=== PATIENT | male | born 1970 | race Two or more races ===

== ENCOUNTER 2018-01-25 06:25 | Emergency (ER) | payer SELFPAY ==
[~2018-01-25] VITALS: Ht 170.2 cm; Wt 99.8 kg
[2018-01-25] MEDS ORDERED: IV NORMAL SALINE 1000ML BAG 1,000 ML IV SCH (07:00)
--- NOTE | 2018-01-25 07:25 | EKG ---
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
[2018-01-25 07:26] LABS: BASO % 0 % (0-3); EOS # 0.1 x10^3/uL (0.0-0.7); EOS % 1 % (0-3); HEMATOCRIT 46.3 % (39.0-53.0); HEMOGLOBIN 16.2 g/dL (13.0-17.5); LYMPH # 0.7 x10^3/uL (1.0-4.8); LYMPH % 12 % (24-48); MEAN CORPUSCULAR HEMOGLOBIN 31 pg (25-35); MEAN CORPUSCULAR HGB CONC 35 g/dL (31-37); MEAN CORPUSCULAR VOLUME 89 fL (79-100); MONO # 0.7 x10^3/uL (0.0-1.1); MONO % 11 % (0-9); NEUT # 4.4 x10^3uL (1.8-7.7); NEUT % 75 % (31-73); PLATELET COUNT 136 x10^3/uL (140-400); RED CELL DISTRIBUTION WIDTH 13.6 % (11.5-14.5); WHITE BLOOD COUNT 5.9 x10^3/uL (4.0-11.0)
--- NOTE | 2018-01-25 07:31 | PHYS DOC ---
Past Medical History Past Medical History: Diabetes-Type II Past Surgical History: No Surgical History Alcohol Use: Occasionally Drug Use: Marijuana Adult General Chief Complaint Chief Complaint: FLU SYMPTOM HPI HPI Patient is a 47 year old male who presents with complaint of flulike symptoms that started on Wednesday. Patient reports productive cough, subjective fever, chills and body aches that have not improved despite taking [id number] medication. He states that this morning he started having some epigastric/lower chest pain and became concerned and felt that he needed to come to the emergency room. He states that he felt some nausea but did not have any vomiting. Patient rates pain as being moderate. He denies any radiation of the pain. Patient states that he has been taking aspirin and [place] plus for symptoms. Patient also complains of rash on his scalp. Review of Systems Review of Systems Constitutional: Positive fever and chills [] HENT: Positive congestion and sore throat [] Respiratory: Positive productive cough without shortness of breath [] Cardiovascular: Positive lower chest/epigastric discomfort[] GI: Positive epigastric discomfort with nausea. Denies vomiting or diarrhea. [] Musculoskeletal: Complains of body aches[] Integument: Denies rash or skin lesions [] All other systems were reviewed and found to be within normal limits, except as documented in this note. Current Medications Current Medications Current Medications Medications (Trade) Dose Ordered Sig/Gibran Start Time Stop Time Status Last Admin Dose Admin Fentanyl Citrate (Fentanyl 2ml Vial) 50 mcg 1X ONCE 01/25/18 09:45 01/25/18 09:46 DC 01/25/18 09:56 50 MCG Info (CONTRAST GIVEN -- Rx MONITORING) 1 each PRN DAILY PRN 01/25/18 08:30 01/27/18 08:29 Iohexol (Omnipaque 300 Mg/ml) 75 ml 1X ONCE 01/25/18 08:30 01/25/18 08:31 DC 01/25/18 08:34 75 ML Ketorolac Tromethamine (Toradol 30mg Vial) 30 mg 1X ONCE 01/25/18 09:45 01/25/18 09:46 DC 01/25/18 09:55 30 MG Ondansetron HCl (Zofran) 4 mg 1X ONCE 01/25/18 09:45 01/25/18 09:46 DC 01/25/18 09:55 4 MG Sodium Chloride 1,000 ml @ 1,000 mls/hr 1X ONCE 01/25/18 09:45 01/25/18 10:44 DC 01/25/18 09:55 1,000 MLS/HR Allergies Allergies Allergies Coded Allergies Type Severity Reaction Last Updated Verified No Known Drug Allergies 01/25/18 No Physical Exam Physical Exam Constitutional: Well developed, well nourished, no acute distress, non-toxic appearance. [] HENT: Normocephalic, atraumatic, bilateral external ears normal, oropharynx moist, no oral exudates, nose normal. [] Eyes: PERRLA, EOMI, conjunctiva normal, no discharge. [] Neck: Normal range of motion, no tenderness, supple, no stridor. [] Cardiovascular: Regular rate and rhythm [] Lungs & Thorax: Bilateral breath sounds clear to auscultation [] Abdomen: Bowel sounds normal, soft, with epigastric tenderness. [] Skin: Warm, diaphoretic. [] Extremities: No tenderness, no cyanosis, no clubbing, ROM intact, no edema. [] Neurologic: Alert and oriented X 3, normal motor function, normal sensory function, no focal deficits noted. [] Current Patient Data Vital Signs Vital Signs Date Time Temp Pulse Resp B/P (MAP) Pulse Ox O2 Delivery O2 Flow Rate FiO2 01/25/18 09:56 18 95 Room Air 01/25/18 06:25 99.0 95 148/77 (100) 99.0 Lab Values Laboratory Tests Test 01/25/18 07:15 01/25/18 10:00 White Blood Count 5.9 x10^3/uL (4.0-11.0) Red Blood Count 5.20 x10^6/uL (4.30-5.70) Hemoglobin 16.2 g/dL (13.0-17.5) Hematocrit 46.3 % (39.0-53.0) Mean Corpuscular Volume 89 fL (79-100) Mean Corpuscular Hemoglobin 31 pg (25-35) Mean Corpuscular Hemoglobin Concent 35 g/dL (31-37) Red Cell Distribution Width 13.6 % (11.5-14.5) Platelet Count 136 x10^3/uL (140-400) L Neutrophils (%) (Auto) 75 % (31-73) H Lymphocytes (%) (Auto) 12 % (24-48) L Monocytes (%) (Auto) 11 % (0-9) H Eosinophils (%) (Auto) 1 % (0-3) Basophils (%) (Auto) 0 % (0-3) Neutrophils # (Auto) 4.4 x10^3uL (1.8-7.7) Lymphocytes # (Auto) 0.7 x10^3/uL (1.0-4.8) L Monocytes # (Auto) 0.7 x10^3/uL (0.0-1.1) Eosinophils # (Auto) 0.1 x10^3/uL (0.0-0.7) Basophils # (Auto) 0.0 x10^3/uL (0.0-0.2) Sodium Level 131 mmol/L (136-145) L Potassium Level 3.9 mmol/L (3.5-5.1) Chloride Level 96 mmol/L (98-107) L Carbon Dioxide Level 25 mmol/L (21-32) Anion Gap 10 (6-14) Blood Urea Nitrogen 9 mg/dL (8-26) Creatinine 0.8 mg/dL (0.7-1.3) Estimated GFR (Cockcroft-Gault) 103.6 BUN/Creatinine Ratio 11 (6-20) Glucose Level 300 mg/dL (70-99) H Calcium Level 9.4 mg/dL (8.5-10.1) Total Bilirubin 0.6 mg/dL (0.2-1.0) Aspartate Amino Transferase (AST) 62 U/L (15-37) H Alanine Aminotransferase (ALT) 211 U/L (16-63) H Alkaline Phosphatase 114 U/L (46-116) Troponin I Quantitative < 0.017 ng/mL (0.000-0.055) Total Protein 7.5 g/dL (6.4-8.2) Albumin 3.5 g/dL (3.4-5.0) Albumin/Globulin Ratio 0.9 (1.0-1.7) L Lipase 282 U/L (73-393) Influenza Type A Antigen Negative (NEGATIVE) Influenza Type B Antigen Negative (NEGATIVE) Urine Collection Type Unknown Urine Color Yellow Urine Clarity Clear Urine pH 6.0 Urine Specific [place] >=1.030 Urine Protein Negative mg/dL (NEG-TRACE) Urine Glucose (UA) >=1000 mg/dL (NEG) Urine Ketones (Stick) 40 mg/dL (NEG) Urine Blood Negative (NEG) Urine Nitrite Negative (NEG) Urine Bilirubin Negative (NEG) Urine Urobilinogen Dipstick 1.0 mg/dL (0.2 mg/dL) Urine Leukocyte Esterase Negative (NEG) Urine RBC 1-2 /HPF (0-2) Urine WBC 1-4 /HPF (0-4) Urine Squamous Epithelial Cells Occ /LPF Urine Bacteria 0 /HPF (0-FEW) Group A Streptococcus Rapid Negative (NEGATIVE) Laboratory Tests 01/25/18 07:15 Laboratory Tests 01/25/18 07:15 EKG EKG [] Interpretation Time: EKG demonstrates normal sinus rhythm with rate of 65. Radiology/Procedures Radiology/Procedures [] Impressions: Examination: CHEST PA LATERAL History: COUGH AND FLU LIKE SYMPTOMS Comparison/Correlation: None Findings: PA and lateral views of chest were obtained. Heart size and pulmonary vasculature are normal. No infiltrate or pleural effusion. No pneumothorax. Bony structures are grossly unremarkable for the patient's age. Impression: No active disease. PROCEDURE: CT ABD PELV W/ IV CONTRST ONLY CT of the abdomen and pelvis with contrast 01/25/2018 INDICATION: Fever and abdominal pain COMPARISON STUDY: None Discussion: Ultrasound sector CT imaging of the abdomen and pelvis was obtained following the administration of IV contrast. FINDINGS: Visualized lung bases demonstrate no acute abnormality. There is a 5 mm stone in the proximal left ureter with mild left-sided hydronephrosis. No significant perinephric stranding is identified. Left renal parenchymal enhancement is unremarkable. Mild periureteric stranding is seen. There is a small cyst in the anterior mid right kidney measuring 1.8 cm in diameter. Smaller exophytic cyst is seen more inferiorly measuring approximately 6 mm. Spleen demonstrates multiple calcifications indicative of prior granulomatous disease. Liver and gallbladder are grossly unremarkable. Pancreas is unremarkable. There is no evidence of bowel obstruction. No evidence of acute inflammatory change involving the bowel is identified appendix is unremarkable. No significant free fluid or free air is seen in the abdomen or pelvis. Fatty inguinal hernias present on the right. Bilateral spondylolysis at L5 with grade 2 anterolisthesis of L5 on S1. IMPRESSION: 1.5 mm stone in the proximal left ureter with mild left-sided hydronephrosis and mild periureteric stranding 2. Other chronic changes, noted above Course & Med Decision Making Course & Med Decision Making Pertinent Labs and Imaging studies reviewed. (See chart for details) [] Brody Disclaimer Brody Disclaimer This electronic medical record was generated, in whole or in part, using a voice recognition dictation system. Departure Departure Impression: Primary Impression: Ureterolithiasis Additional Impression: Tinea capitis Disposition: HOME, SELF-CARE Condition: STABLE Referrals: NO PCP (PCP) Patient Instructions: Kidney Stones Scripts Ketoconazole (NIZORAL) 120 Ml Shampoo 1 TO TP TWICE WEEKLY, #120 ML Prov: AARON SHORT Jr. DO 01/25/18 Promethazine Hcl (PROMETHAZINE HCL) 25 Mg Tablet 1 TAB PO PRN Q6HRS PRN for NAUSEA, #12 TAB Prov: AARON SHORT Jr. DO 01/25/18 Oxycodone/Apap 5-325 (PERCOCET 5-325 MG TABLET) 1 Each Tablet 1 EACH PO Q6HRS PRN for PAIN, #15 TAB pain Prov: AARON SHORT Jr. DO 01/25/18 Sulfamethoxazole/Trimethoprim (BACTRIM DS TABLET) 1 Each Tablet 1 TAB PO BID, #20 TAB Prov: AARON SHORT Jr. DO 01/25/18 Problem Qualifiers AARON SHORT Jr. DO Jan 25, 2018 07:31
[2018-01-25 07:34] LABS: CALCIUM 9.4 mg/dL (8.5-10.1); CREATININE 0.8 mg/dL (0.7-1.3); GFR 103.6; POTASSIUM 3.9 mmol/L (3.5-5.1)
[2018-01-25 07:39] LABS: ALBUMIN 3.5 g/dL (3.4-5.0); ALBUMIN/GLOBULIN RATIO 0.9 (1.0-1.7); TOTAL BILIRUBIN 0.6 mg/dL (0.2-1.0); TOTAL PROTEIN 7.5 g/dL (6.4-8.2)
[2018-01-25 07:43] LABS: INFLUENZA A PATIENT NEGATIVE (NEGATIVE); INFLUENZA B PATIENT NEGATIVE (NEGATIVE)
--- NOTE | 2018-01-25 07:50 | RAD ---
Examination: CHEST PA LATERAL History: COUGH AND FLU LIKE SYMPTOMS Comparison/Correlation: None Findings: PA and lateral views of chest were obtained. Heart size and pulmonary vasculature are normal. No infiltrate or pleural effusion. No pneumothorax. Bony structures are grossly unremarkable for the patient's age. Impression: No active disease. Electronically signed by: Maximo Hobbs MD (01/25/2018 7:46 AM) [facility]
[2018-01-25] MEDS ORDERED: IOHEXOL 300 MG/ML 100ML VIAL. IV ONE (08:30)
[2018-01-25] MEDS ORDERED: CONTRAST GIVEN. MC PRN (08:30)
--- NOTE | 2018-01-25 09:04 | RAD ---
CT of the abdomen and pelvis with contrast 01/25/2018 INDICATION: Fever and abdominal pain COMPARISON STUDY: None Discussion: Ultrasound sector CT imaging of the abdomen and pelvis was obtained following the administration of IV contrast. FINDINGS: Visualized lung bases demonstrate no acute abnormality. There is a 5 mm stone in the proximal left ureter with mild left-sided hydronephrosis. No significant perinephric stranding is identified. Left renal parenchymal enhancement is unremarkable. Mild periureteric stranding is seen. There is a small cyst in the anterior mid right kidney measuring 1.8 cm in diameter. Smaller exophytic cyst is seen more inferiorly measuring approximately 6 mm. Spleen demonstrates multiple calcifications indicative of prior granulomatous disease. Liver and gallbladder are grossly unremarkable. Pancreas is unremarkable. There is no evidence of bowel obstruction. No evidence of acute inflammatory change involving the bowel is identified appendix is unremarkable. No significant free fluid or free air is seen in the abdomen or pelvis. Fatty inguinal hernias present on the right. Bilateral spondylolysis at L5 with grade 2 anterolisthesis of L5 on S1. IMPRESSION: 1.5 mm stone in the proximal left ureter with mild left-sided hydronephrosis and mild periureteric stranding 2. Other chronic changes, noted above CT DOSING PQRS STATEMENT: One or more of the following individualized dose reduction techniques were utilized for this examination: 1. Automated exposure control 2. Adjustment of the mA and/or kV according to patient size 3. Use of iterative reconstruction technique Electronically signed by: Adrien Silverio MD (01/25/2018 9:00 AM) [id number]
[2018-01-25] MEDS ORDERED: fentaNYL PF VIAL 100 MCG/2 ML VIAL IV ONE (09:45)
[2018-01-25] MEDS ORDERED: ONDANSETRON PF 4 MG/2 ML VIAL. IV ONE (09:45)
[2018-01-25] MEDS ORDERED: IV NORMAL SALINE 1000ML BAG 1,000 ML IV ONE (09:45)
[2018-01-25] MEDS ORDERED: KETOROLAC 30 MG/ML VIAL. IV ONE (09:45)
[2018-01-25 10:24] LABS: BILIRUBIN,URINE NEGATIVE (NEG); CLARITY,URINE CLEAR; COLOR,URINE YELLOW; NITRITE,URINE NEGATIVE (NEG); PROTEIN,URINE NEGATIVE (NEG-TRACE)
[2018-01-25 10:45] LABS: SQUAMOUS EPITHELIAL CELL,UR OCC /LPF
[2018-01-25 10:46] LABS: BACTERIA,URINE 0 /HPF (0-FEW)
[2018-01-25 11:25] VITALS: BP 126/79
[2018-01-25] MEDS ORDERED: OXYC-323 PO (11:36)
[2018-01-25] MEDS ORDERED: SULF1TAB24 PO (11:36)
[2018-01-25] MEDS ORDERED: KETO120S5 TP (11:36)
[2018-01-25] MEDS ORDERED: PROM25TA10 PO (11:36)
== END 2018-01-25 11:50 | disposition home or self-care (01) ==
LOC: ER 06:25
DX: N13.2 Hydronephrosis with renal and ureteral calculous obstruction (principal); B35.0 Tinea barbae and tinea capitis; R50.9 Fever, unspecified; R05 Cough; J02.9 Acute pharyngitis, unspecified; R07.89 Other chest pain; M47.897 Other spondylosis, lumbosacral region; R10.13 Epigastric pain; E11.9 Type 2 diabetes mellitus without complications; R11.0 Nausea
CPT/HCPCS: 36415; 71046; 74177; 80053; 81001; 83690; 84484; 85025; 87040; 87070; 87804; 87880; 93005; 96374; 96375; 99284; J1885; J2405; J3010; J7030; Q9967

== ENCOUNTER 2020-03-16 15:40 | Emergency (ER) | payer BC, OTHER ==
[~2020-03-16] VITALS: Ht 167.6 cm; Wt 90.9 kg
[~2020-03-16 15:40] MED LIST: HYDR-3164 PO; KETO120S5 TP; METF10007 PO; OXYC1TAB15 PO; PROM25TA10 PO; SULF1TAB24 PO; TAMS0.4C97 PO
[2020-03-16] MEDS ORDERED: MORPHINE SULFATE 4 MG/ML VIAL. IV/SQ PRN (16:00)
[2020-03-16] MEDS ORDERED: DEXAMETHASONE SOD PHOS 20 MG/5 ML VIAL. IV ONE (16:00)
[2020-03-16] MEDS ORDERED: IV NORMAL SALINE 1000ML BAG 1,000 ML IV ONE (16:15)
--- NOTE | 2020-03-16 16:19 | PHYS DOC ---
Past Medical History Past Medical History: Diabetes-Type II Additional Past Medical Histor: NON-COMPLIANT (MIKAYLA ENGLISH APRN) Past Surgical History: No Surgical History (MIKAYLA ENGLISH APRN) Smoking Status: Current Every Day Smoker Alcohol Use: Occasionally Drug Use: Marijuana (MIKAYLA ENGLISH APRN) General Adult EDM: Chief Complaint: COUGH HPI: HPI: Patient is a 49 year old male with a history of diabetes type 2, current smoker, who presents to the ED today stating he was diagnosed with COVID-19 3 days ago. He states his had cough, body aches, chills, fevers, nausea, vomiting, diarrhea, SOA for 1 week. He states he was seen at [facility] yesterday and they did not do anything for him. (MIKAYLA ENGLISH APRN) Review of Systems: Review of Systems: Constitutional: Reports fevers, body aches and chills Eyes: Denies change in visual acuity. [] HENT: Denies nasal congestion or sore throat. [] Respiratory: Reports cough shortness of breath. [] Cardiovascular: Denies chest pain or edema. [] GI: Reports nausea, vomiting, diarrhea. Denies abdominal pain, hematemesis or melena : Denies dysuria. [] Musculoskeletal: Denies back pain or joint pain. [] Integument: Denies rash. [] Neurologic: Denies headache, focal weakness or sensory changes. [] Psychiatric: Denies depression or anxiety. [] (MIKAYLA ENGLISH APRN) Heart Score: Risk Factors: Risk Factors: DM, Current or recent (<one month) smoker, HTN, HLP, family history of CAD, obesity. Risk Scores: Score 0 - 3: 2.5% MACE over next 6 weeks - Discharge Home Score 4 - 6: 20.3% MACE over next 6 weeks - Admit for Clinical Observation Score 7 - 10: 72.7% MACE over next 6 weeks - Early Invasive Strategies (MIKAYLA ENGLISH APRN) Current Medications: Current Medications Medications (Trade) Dose Ordered Sig/Gibran Start Time Stop Time Status Last Admin Dose Admin Dexamethasone Sodium Phosphate (Decadron) 10 mg 1X ONCE 03/16/20 16:00 03/16/20 16:06 DC Morphine Sulfate (Morphine Sulfate) 4 mg PRN Q15MIN PRN 03/16/20 16:00 03/17/20 15:59 Sodium Chloride 1,000 ml @ 1,000 mls/hr 1X ONCE 03/16/20 16:15 03/16/20 17:14 (MIKAYLA ENGLISH APRN) Allergies: Allergies: Allergies Coded Allergies Type Severity Reaction Last Updated Verified No Known Drug Allergies 01/25/18 No (MIKAYLA ENGLISH APRN) Physical Exam: PE: Constitutional: Well developed, well nourished, no acute distress, non-toxic appearance. [] HENT: Normocephalic, atraumatic, bilateral external ears normal, oropharynx moist, no oral exudates, nose normal. [] Eyes: PERRLA, EOMI, conjunctiva normal, no discharge. [] Neck: Normal range of motion, no tenderness, supple, no stridor. [] Cardiovascular:Heart rate regular rhythm, no murmur [] Lungs & Thorax: Bilateral breath sounds clear to auscultation [] Abdomen: Bowel sounds normal, soft, no tenderness, no masses, no pulsatile masses. [] Skin: Warm, dry, no erythema, no rash. [] Back: No tenderness, no CVA tenderness. [] Extremities: No tenderness, no cyanosis, no clubbing, ROM intact, no edema. [] Neurologic: Alert and oriented X 3, normal motor function, normal sensory function, no focal deficits noted. [] Psychologic: Affect normal, judgement normal, mood normal. [] (MIKAYLA ENGLISH APRN) Current Patient Data: Vital Signs: Vital Signs Date Time Temp Pulse Resp B/P (MAP) Pulse Ox O2 Delivery O2 Flow Rate FiO2 03/16/20 15:57 99.6 76 20 118/86 (97) 94 Room Air 99.6 (MIKAYLA ENGLISH APRN) EKG: EK interpreted by Dr. Merino sinus rhythm HR 66 no STEMI (MIKAYLA ENGLISH APRN) Radiology/Procedures: Radiology/Procedures: []PATIENT: ESTRELLITA RIZOACCOUNT: [id number]#: [id number] : 1970 LOCATION: ER AGE: 49 SEX: M EXAM STATUS: REG ER ORD. PHYSICIAN: MIKAYLA ENGLISH APRN REASON: cough + covid PROCEDURE: PORTABLE CHEST 1V EXAM: CHEST 1 VIEW History: Cough, covid COMPARISON: 01/25/2018. TECHNIQUE: Single portable radiograph of the chest FINDINGS: Mild cardiomegaly. Bilateral lung airspace opacities with the prominent appearing airspace opacity identified in the right midlung zone likely infiltrates or atypical pneumonia or covid pneumonia. IMPRESSION: Bilateral lung airspace opacities with prominent appearing airspace opacity identified in the right midlung zone likely infiltrates or atypical or covid pneumonia. Follow-up to resolution. Electronically signed by: Vern Wharton MD (03/16/2020 4:30 PM) [id number] DICTATED and SIGNED BY: VERN WHARTON MD DATE: 03/16/20 [id number] (MIKAYLA ENGLISH APRN) Course & Med Decision Making: Course & Med Decision Making Pertinent Labs and Imaging studies reviewed. (See chart for details) This is a 49-year-old male patient who presents to the ED today with Covid symptoms, patient was diagnosed with Covid 3 days ago. He is complaining of body aches, chills, cough, shortness of breath, diarrhea, vomiting, symptoms for roughly a week. Arrives in the ED with O2 sats around 94% on room air, heart rate 74, temperature 99.6, respiration 20 on room air, blood pressure 118/86 Chest x-ray noted for bilateral Covid pneumonia. CBC with a normal WBCs, platelet count 118, CMP with glucose of 309, AST60, ALK 79. Given Decadron, Rocephin and azithromycin. Discharged with Decadron, azithromycin and instructed to follow-up with the PCP. Rest, push fluids, maintain good and hygiene and wear a mask (MIKAYLA ENGLISH APRN) Dragon Disclaimer: Dragon Disclaimer: This electronic medical record was generated, in whole or in part, using a voice recognition dictation system. (MIKAYLA ENGLISH APRN) Departure Departure Impression: Primary Impression: Lab test positive for detection of COVID-19 virus Additional Impressions: Bilateral pulmonary infiltrates on CXR Hyperglycemia Disposition: 01 DC HOME SELF CARE/HOMELESS Condition: STABLE Referrals: NO PCP (PCP) follow up with your doctor next week Patient Instructions: Hyperglycemia, Pneumonia, Adult Additional Instructions: You are Covid positive, your chest x-ray shows he have Covid pneumonia. Please take the prescribed medications as ordered. Rest, push fluids. Follow-up with your doctor in the course of next week Scripts Azithromycin (ZITHROMAX) 250 Mg Tablet 1 PKG PO UD, #1 PKG Prov: MIKAYLA ENGLISH APRN 03/16/20 Benzonatate (TESSALON PERLE) 100 Mg Capsule 1 CAP PO TID, #30 CAP Prov: MIKAYLA ENGLISH APRN 03/16/20 Dexamethasone (Decadron) 6 Mg Tablet 1 TAB PO DAILY, #7 TAB 0 Refills Prov: MIKAYLA ENGLISH APRN 03/16/20 Attending Signature Attending Signature I have reviewed the PA/WEIGHT INSPECTOR's note and plan of care. I was available for consultation as needed during the patient's visit in the emergency department. I agree with the clinical impression, plan, and disposition. (ARABELLA MERINO DO) MIKAYLA ENGLISH APRN Mar 16, 2020 16:19 ARABELLA MERINO DO Mar 17, 2020 06:17
[2020-03-16] MEDS ORDERED: ACETAMINOPHEN 500 MG TABLET PO ONE (16:30)
[2020-03-16] MEDS ORDERED: ONDANSETRON PF 4 MG/2 ML VIAL. IVP ONE (16:30)
--- NOTE | 2020-03-16 16:33 | RAD ---
EXAM: CHEST 1 VIEW History: Cough, covid COMPARISON: 01/25/2018. TECHNIQUE: Single portable radiograph of the chest FINDINGS: Mild cardiomegaly. Bilateral lung airspace opacities with the prominent appearing airspace opacity identified in the right midlung zone likely infiltrates or atypical pneumonia or covid pneum onia. IMPRESSION: Bilateral lung airspace opacities with prominent appearing airspace opacity identified in the right m idlung zone likely infiltrates or atypical or covid pneumonia. Follow-up to resolution. Electronically signed by: Vern Wharton MD (03/16/2020 4:30 PM) [id number]
[2020-03-16] MEDS ORDERED: AZITHROMYCIN 500 MG in IV NORMAL SALINE 250ML 250 ML IV ONE (17:00)
[2020-03-16] MEDS ORDERED: cefTRIAXone IV Push 1 GM VIAL. IVP ONE (17:00)
[2020-03-16] MEDS ORDERED: AZITHRMYCN 500MG IVPB FOR OMNI 250 ML IV ONE (17:00)
[2020-03-16 17:25] LABS: BASO % 0 % (0-3); EOS % 0 % (0-3); HEMATOCRIT 39.2 % (39.0-53.0); HEMOGLOBIN 13.5 g/dL (13.0-17.5); LYMPH # 0.6 x10^3/uL (1.0-4.8); LYMPH % 15 % (24-48); MEAN CORPUSCULAR HEMOGLOBIN 30 pg (25-35); MEAN CORPUSCULAR HGB CONC 34 g/dL (31-37); MEAN CORPUSCULAR VOLUME 87 fL (79-100); MONO # 0.1 x10^3/uL (0.0-1.1); MONO % 3 % (0-9); NEUT # 3.3 x10^3/uL (1.8-7.7); NEUT % 82 % (31-73); PLATELET COUNT 118 x10^3/uL (140-400); RED BLOOD COUNT 4.51 x10^6/uL (4.30-5.70); RED CELL DISTRIBUTION WIDTH 13.1 % (11.5-14.5); WHITE BLOOD COUNT 4.1 x10^3/uL (4.0-11.0)
[2020-03-16 17:33] LABS: CALCIUM 8.7 mg/dL (8.5-10.1); CREATININE 0.7 mg/dL (0.7-1.3); GFR 119.9; POTASSIUM 4.3 mmol/L (3.5-5.1)
[2020-03-16 17:39] LABS: ALBUMIN 2.7 g/dL (3.4-5.0); ALBUMIN/GLOBULIN RATIO 0.7 (1.0-1.7); TOTAL BILIRUBIN 0.4 mg/dL (0.2-1.0); TOTAL PROTEIN 6.4 g/dL (6.4-8.2)
[2020-03-16 17:50] VITALS: BP 122/80
[2020-03-16] MEDS ORDERED: BENZ100C PO (17:50)
[2020-03-16] MEDS ORDERED: DEXA6TAB6 PO (17:50)
[2020-03-16] MEDS ORDERED: AZIT250T PO (17:50)
[2020-03-16 18:10] LABS: CREATINE KINASE 127 U/L (39-308)
--- NOTE | 2020-03-17 11:51 | EKG ---
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
== END 2020-03-16 19:24 | disposition home or self-care (01) ==
LOC: ER 15:40
DX: R91.8 Other nonspecific abnormal finding of lung field (principal); E11.65 Type 2 diabetes mellitus with hyperglycemia; R11.2 Nausea with vomiting, unspecified; F17.200 Nicotine dependence, unspecified, uncomplicated
CPT/HCPCS: 36415; 71045; 80053; 82553; 83605; 83690; 83880; 84145; 84484; 85025; 87040; 93005; 96365; 96366; 96375; 99285; J0456; J0696; J1100; J2270; J2405; J7030

== ENCOUNTER 2021-07-17 20:30 | Emergency (ER) | payer BC, OTHER ==
[~2021-07-17] VITALS: Ht 167.6 cm; Wt 90.0 kg
[~2021-07-17 20:30] MED LIST changes: +AZIT250T PO; +BENZ100C PO; +DEXA6TAB6 PO
[2021-07-17 20:35] VITALS: BP 117/84
[2021-07-17] MEDS ORDERED: LIDOCAINE 2%/EPI 1:100,000 20 ML VIAL. INJ ONE (21:00)
--- NOTE | 2021-07-17 21:14 | ED.ADGEN ---
Past Medical History Past Medical History: Diabetes-Type II Additional Past Medical Histor: NON-COMPLIANT Past Surgical History: Other Additional Past Surgical Histo: hernia Smoking Status: Current Every Day Smoker Alcohol Use: Occasionally Drug Use: Marijuana General Adult EDM: Chief Complaint: LACERATION/AVULSION HPI: HPI: Patient is a 51 year old male coming in for left forearm laceration. 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 Last tetanus within 5 years. Review of Systems: Review of Systems: All other systems within normal limits except for as noted in the HPI Current Medications: Current Medications Medications (Trade) Dose Ordered Sig/Gibran Start Time Stop Time Status Last Admin Dose Admin Lidocaine/ Epinephrine (LIDOCAINE 2%-EPI 1:100,000 multi-dose) 20 ml 1X ONCE 07/17/21 21:00 07/17/21 21:01 DC 07/17/21 21:00 20 ML Allergies: Allergies: Allergies Coded Allergies Type Severity Reaction Last Updated Verified No Known Drug Allergies 01/25/18 No Physical Exam: PE: Constitutional: Well developed, well nourished, no acute distress, non-toxic appearance. [] HENT: Normocephalic, atraumatic, bilateral external ears normal, nose normal. [] Eyes: PERRLA, conjunctiva normal, no discharge. [] Neck: No rigidity, supple, no stridor. [] Cardiovascular: Regular rate and rhythm, brisk cap refill [] Lungs & Thorax: Non labored symmetric respirations, no tachypnea or respiratory distress [] Abdomen: Soft, nondistended. Skin: Warm, dry, no erythema, no rash. 1.5 cm linear laceration to distal left 4 [] Back: Unremarkable Extremities: No deformities, range of motion grossly intact, no lower extremity edema [] Neurologic: Alert and oriented X 3, no focal deficits noted. [] Psychologic: Affect normal, judgement normal, mood normal. [] Current Patient Data: Vital Signs: Vital Signs Date Time Temp Pulse Resp B/P (MAP) Pulse Ox O2 Delivery O2 Flow Rate FiO2 07/17/21 20:35 97.9 79 16 117/84 (95) 97 Room Air 97.9 EKG: EKG: [] Heart Score: C/O Chest Pain: No Risk Factors: Risk Factors: DM, Current or recent (<one month) smoker, HTN, HLP, family history of CAD, obesity. Risk Scores: Score 0 - 3: 2.5% MACE over next 6 weeks - Discharge Home Score 4 - 6: 20.3% MACE over next 6 weeks - Admit for Clinical Observation Score 7 - 10: 72.7% MACE over next 6 weeks - Early Invasive Strategies Radiology/Procedures: Radiology/Procedures: Patient was prepped and draped in normal fashion, wound irrigated and cleansed with normal saline. The one-point cm wound was anesthetized with lidocaine 2% with epinephrine. Depth of wound was examined and no foreign bodies found. Wound was approximated with 4suture in a simple pattern. 3 sutures placed without complication. Wound was then dressed a nonadherent bandage [] Course & Med Decision Making: Course & Med Decision Making Pertinent Labs and Imaging studies reviewed. (See chart for details) [] Dragon Disclaimer: Dragon Disclaimer: This electronic medical record was generated, in whole or in part, using a voice recognition dictation system. Departure Departure Impression: Primary Impression: Laceration of left forearm Disposition: HOME / SELF CARE / HOMELESS Condition: STABLE Referrals: NO PCP (PCP) Patient Instructions: Sutured Wound Care Additional Instructions: Follow-up with your primary care provider for suture removal in 1 week AYLEEN DORADO MD July 17, 2021 21:14
== END 2021-07-17 21:19 | disposition home or self-care (01) ==
LOC: ER 20:30
DX: S51.812A Laceration without foreign body of left forearm, initial encounter (principal); E11.9 Type 2 diabetes mellitus without complications; F17.200 Nicotine dependence, unspecified, uncomplicated; Y28.8XXA Contact with other sharp object, undetermined intent, initial encounter; Y93.89 Activity, other specified; Y92.89 Other specified places as the place of occurrence of the external cause; Y99.8 Other external cause status
CPT/HCPCS: 12001; 99282; J3490

== ENCOUNTER 2021-08-04 11:46 | Emergency (ER) | payer OTHER ==
[~2021-08-04] VITALS: Ht 165.1 cm; Wt 88.0 kg
[2021-08-04 11:50] VITALS: BP 118/71
--- NOTE | 2021-08-04 12:51 | PHYS DOC ---
Past Medical History Past Medical History: Diabetes-Type II Additional Past Medical Histor: NON-COMPLIANT Past Surgical History: Other Additional Past Surgical Histo: hernia Smoking Status: Current Every Day Smoker Alcohol Use: Occasionally Drug Use: Marijuana General Adult EDM: Chief Complaint: SUTURE/STAPLE REMOVAL HPI: HPI: Patient is a 51-year-old male presents to the emergency department requesting suture removal of sutures at the left distal forearm near the ulnar aspect wrist. Patient reports he had sutures placed 3 weeks ago, was told to have sutures out in 7 to 10 days, states he has been too busy to get to the emergency department until now. Patient denies any problems with his sutures. He did noticed the area was starting to turn red. Denies any purulent drainage from suture site. Denies fever or chills at home. Denies other physical complaints or physical concerns. Patient reports his last tetanus immunization was less than 5 years ago. Review of Systems: Review of Systems: 14 body systems of review of systems have been reviewed. See HPI for pertinent positives and negative responses, otherwise all other systems are negative, nonpertinent or noncontributory. Constitutional: Negative except as outlined in HPI above. Skin: Negative except as outlined in HPI above. Eyes: Negative except as outlined in HPI above. HENT: Negative except as outlined in HPI above. Respiratory: Negative except as outlined in HPI above. Cardiovascular: Negative except as outlined in HPI above. GI: Negative except as outlined in HPI above. : Negative except as outlined in HPI above. Musculoskeletal: Negative except as outlined in HPI above. Integument: Negative except as outlined in HPI above. Neurologic: Negative except as outlined in HPI above. Endocrine: Negative except as outlined in HPI above. Lymphatic: Negative except as outlined in HPI above. Psychiatric: Negative except as outlined in HPI above. Heart Score: C/O Chest Pain: No Risk Factors: Risk Factors: DM, Current or recent (<one month) smoker, HTN, HLP, family history of CAD, obesity. Risk Scores: Score 0 - 3: 2.5% MACE over next 6 weeks - Discharge Home Score 4 - 6: 20.3% MACE over next 6 weeks - Admit for Clinical Observation Score 7 - 10: 72.7% MACE over next 6 weeks - Early Invasive Strategies Allergies: Allergies: Allergies Coded Allergies Type Severity Reaction Last Updated Verified No Known Drug Allergies 01/25/18 No Physical Exam: PE: Constitutional: Well developed, well nourished, no acute distress, non-toxic appearance. 51-year-old male in no apparent distress. HENT: Normocephalic, atraumatic. Eyes: Conjunctiva normal, no discharge. Neck: Normal range of motion, no stridor. Cardiovascular: No cyanosis appreciated, distal cap refill less than 2 seconds. Lungs & Thorax: Patient is in no respiratory distress, no audible adventitious lung sounds appreciated. Abdomen: Nontender, no abnormalities noted. Skin: Warm, dry, no erythema, no rash. There are 3 sutures at the left distal forearm just proximal to the ulnar styloid bony prominence, there is an area of erythema with a fluctuant induration. There is no purulent drainage appreciated. Back: No tenderness, no deformities. Extremities: No tenderness, no cyanosis, no clubbing, ROM intact, no edema. Distal cap refill less than 2 seconds bilateral upper extremities, 2+ radial pulses bilateral upper extremities. Neurologic: Alert and oriented X 3, normal motor function, normal sensory function, no focal deficits noted. Psychologic: Affect normal, judgement normal, mood normal. Current Patient Data: Vital Signs: Vital Signs Date Time Temp Pulse Resp B/P (MAP) Pulse Ox O2 Delivery O2 Flow Rate FiO2 08/04/21 11:50 97.5 79 16 118/71 (87) 97 Room Air 97.5 EKG: EKG: [] Radiology/Procedures: Radiology/Procedures: [] Course & Med Decision Making: Course & Med Decision Making Pertinent Labs and Imaging studies reviewed. (See chart for details) 51-year-old male, vital signs reviewed, presents emergency department for suture removal. Patient had sutures placed approximately 3 weeks ago, states he was unable to have them removed until now related to he has been busy. 3 interrupted sutures were removed. There was a scant amount of purulent drainage expressed after suture removal. Along with area of erythema, discussed with patient will start on antibiotic therapy. Discussed with patient follow-up with primary care or work-up doctor for ongoing symptoms, discussed antibiotic and side effects, return to ER precautions and concerns were reviewed, patient gave verbal understanding of and is amenable to ED discharge planning. Discussed with the patient all findings and diagnostic testing as well as the need to follow-up with their primary care provider for further evaluation and treatment or return to the ED if any new or worsening symptoms. Strict return precautions were also discussed at length, the patient voiced understanding and agreement with the discharge planning. The patient was nontoxic in appearance, in no apparent distress, and hemodynamically stable at the time of disposition. Dragon Disclaimer: Dragon Disclaimer: This electronic medical record was generated, in whole or in part, using a voice recognition dictation system. Departure Departure Impression: Primary Impression: Encounter for removal of sutures Additional Impression: Abscess of left forearm Disposition: HOME / SELF CARE / HOMELESS Condition: GOOD Referrals: NO PCP (PCP) Patient Instructions: Abscess Additional Instructions: You were seen today in the emergency department for suture removal. You had reported the sutures were placed 3 weeks ago. All 3 sutures were removed, however you do show signs of a infection of the skin over the suture site. Please continue to cleanse daily with soap and water and apply antibiotic ointment and bandage, I am starting you on a antibiotic that you will take 4 times a day for the next 7 days. Please follow-up with your work comp physician or primary care physician for reevaluation of this suture site infection. Return to the emergency department for worsening symptoms or other concerns. Thank you for visiting our Emergency Department. It was a pleasure taking care of you today in the emergency department and we appreciate you trusting us with your care. If any additional problems come up don't hesitate to return to visit us. Please follow up with your primary care provider so they can plan additional care if needed and know about the problem that you had. If symptoms worsen come back to the Emergency Department. Any concerning symptoms that start such as chest pain, shortness of air, weakness or numbness on one side of the body, running high fevers or any other concerning symptoms return to the ER. Scripts Cephalexin (CEPHALEXIN) 500 Mg Tablet 1 TAB PO QID for skin infection, #40 TAB 0 Refills Prov: ARABELLA RIZVI APRN 08/04/21 ARABELLA RIZVI APRN August 04, 2021 12:51
[2021-08-04] MEDS ORDERED: CEPH500T PO (12:55)
[2021-08-04] MEDS ORDERED: BACITRACIN TOPICAL OINT PACKET. TP ONE (13:00)
== END 2021-08-04 13:00 | disposition home or self-care (01) ==
LOC: ER 11:46
DX: S51.812D Laceration without foreign body of left forearm, subsequent encounter (principal); E11.9 Type 2 diabetes mellitus without complications; F17.200 Nicotine dependence, unspecified, uncomplicated; X58.XXXD Exposure to other specified factors, subsequent encounter
CPT/HCPCS: 99283